=== PATIENT | male | born 1935 ===

== ENCOUNTER → 2018-05-04 | Emergency (ER) | payer OTHER ==
[~2018-05-04] VITALS: Ht 165.1 cm; Wt 79.4 kg
== END | disposition home or self-care (01) ==
LOC: ER 17:57
DX: S05.41XA Penetrating wound of orbit with or without foreign body, right eye, initial encounter (principal); S20.212A Contusion of left front wall of thorax, initial encounter; S20.211A Contusion of right front wall of thorax, initial encounter; W18.39XA Other fall on same level, initial encounter; Y93.89 Activity, other specified; Y92.89 Other specified places as the place of occurrence of the external cause; Y99.8 Other external cause status

== ENCOUNTER 2018-07-31 08:08 | Emergency (ER) | payer OTHER ==
[~2018-07-31] VITALS: Ht 154.9 cm; Wt 72.6 kg
[2018-07-31] MEDS ORDERED: PROSCAR5 MG (08:34)
== END 2018-07-31 10:25 | disposition home or self-care (01) ==
LOC: ER 08:08
DX: K59.09 Other constipation (principal); R14.3 Flatulence; B34.9 Viral infection, unspecified; R06.02 Shortness of breath; R10.31 Right lower quadrant pain; J11.1 Influenza due to unidentified influenza virus with other respiratory manifestations

== ENCOUNTER 2022-11-12 13:50 | Emergency (ER) | payer OTHER ==
[~2022-11-12] VITALS: Ht 167.6 cm; Wt 79.8 kg
[~2022-11-12 13:50] MED LIST: PROSCAR5 MG
[2022-11-12] MEDS ORDERED: SYNTHROID75 MCG PO (14:47)
== END 2022-11-12 16:58 | disposition home or self-care (01) ==
LOC: ER 13:50
DX: S09.90XA Unspecified injury of head, initial encounter (principal); W18.30XA Fall on same level, unspecified, initial encounter; Y93.9 Activity, unspecified; Y92.019 Unspecified place in single-family (private) house as the place of occurrence of the external cause; F03.90 Unspecified dementia, unspecified severity, without behavioral disturbance, psychotic disturbance, mood disturbance, and anxiety; Z88.6 Allergy status to analgesic agent; M19.90 Unspecified osteoarthritis, unspecified site; M50.321 Other cervical disc degeneration at C4-C5 level; S79.911A Unspecified injury of right hip, initial encounter